=== PATIENT | female | born 1985 | race Caucasian/White ===

== ENCOUNTER 2021-01-22 00:40 | Emergency (ER) | payer SELFPAY ==
[~2021-01-22] VITALS: Ht 160 cm; Wt 72.2 kg
--- NOTE | 2021-01-22 00:46 | PHYS DOC ---
General Adult EDM: Chief Complaint: BREAST PROBLEM HPI: HPI: ". .. 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 the last couple weeks... "..".. It same breast years ago .. I got a lump.. and infection.. I had xrays. or mammogram twice at [facility] referred to either [facility] or [facility] but I do not have any paperwork with me.... But I ended up in hospital month on 3 different antibiotics and they did surgery.... Patient is a 35 year old female who presents with above hx and complaints right breast tenderness at area of previous biopsy and lumpectomy. Patient has no axillary tenderness. No striations. No nipple discharge. Does have some inflammation right at skin of previous suture line on right breast. Patient gives history of somewhat resistant infection of this area previously. Patient does have a follow-up physician and has followed in the past at [facility] at [facility]. Patient symptoms have been present last 24 to 48 hours. Patient is very concerned. Patient denies any history of depression. No history of trauma. No history of travel. No history of significant ill contacts. Review of Systems: Review of Systems: Constitutional: Denies fever or chills Eyes: Denies change in visual acuity HENT: Denies nasal congestion or sore throat Respiratory: Denies cough or shortness of breath Cardiovascular: Denies chest pain or edema GI: Denies abdominal pain, nausea, vomiting, bloody stools or diarrhea : Denies dysuria Musculoskeletal: Denies back pain or joint pain Integument: Complains of inflammation at the suture line of previous biopsy right breast Neurologic: Denies headache, focal weakness or sensory changes Endocrine: Denies polyuria or polydipsia Lymphatic: Denies swollen glands Psychiatric: Denies depression or anxiety Family History: Family History: Noncontributory presentation Current Medications: Current Meds: See nursing for home meds Allergies: Allergies: Allergic to penicillins Physical Exam: PE: Constitutional: Well developed, well nourished, in acute motional distress, non- toxic appearance. [] HENT: Normocephalic, atraumatic, bilateral external ears normal, oropharynx moist, no oral exudates, nose normal. [] Eyes: PERRLA, EOMI, conjunctiva normal, no discharge. [] Neck: Normal range of motion, no tenderness, supple, no stridor. [] Cardiovascular:Heart rate regular rhythm, no murmur [] Lungs & Thorax: Bilateral breath sounds equal apex with scattered wheezes on auscultation [] Abdomen: Bowel sounds normal, soft, no tenderness, no masses, no pulsatile masses. [] Skin: Warm, dry, no erythema, inflamed area at suture line of right breast. Back: No tenderness, no CVA tenderness. [] Extremities: No tenderness, no cyanosis, no clubbing, ROM intact, no edema. [] Neurologic: Alert and oriented X 3, normal motor function, normal sensory function, no focal deficits noted. [] Psychologic: Affect very anxious, judgement normal, mood normal. [] EKG: EKG: [] Radiology/Procedures: Radiology/Procedures: [] Heart Score: C/O Chest Pain: N/A Risk Factors: Risk Factors: DM, Current or recent (<one month) smoker, HTN, HLP, family history of CAD, obesity. Risk Scores: Score 0 - 3: 2.5% MACE over next 6 weeks - Discharge Home Score 4 - 6: 20.3% MACE over next 6 weeks - Admit for Clinical Observation Score 7 - 10: 72.7% MACE over next 6 weeks - Early Invasive Strategies Course & Med Decision Making: Course & Med Decision Making Pertinent Labs and Imaging studies reviewed. (See chart for details) Patient history this must be followed up and new mammogram films compared to prior films on file at hospitals where she had previous surgery done. During arrival here would start on Bactrim DS twice a day. Massage area Polysporin 4 times a day. Take Tylenol and ibuprofen for discomfort. Impressed upon patient the need for prompt follow-up and comparison of old films with new films. Most likely this is cellulitis localized to the area however with history always have to have a high suspicion for carcinoma. Must follow-up. Return if any concerns. Impression 1. Right breast inflammation suspect cellulitis 2. History of right breast infection and mass with prior surgical resection-at site of current inflammation. [] Dragon Disclaimer: Dragon Disclaimer: This electronic medical record was generated, in whole or in part, using a voice recognition dictation system. Departure Departure: Scripts Sulfamethoxazole/Trimethoprim (BACTRIM DS TABLET) 1 Each Tablet 1 TAB PO BID for cellulitis for 10 Days, #20 TAB 0 Refills Prov: SELENE CORTES MD 01/22/21 Sebastian Disclaimer This chart was dictated in whole or in part using Voice Recognition software in a busy, high-work load, and often noisy Emergency Department environment. It may contain unintended and wholly unrecognized errors or omissions. SELENE CORTES MD Jan 22, 2021 00:46
[2021-01-22] MEDS ORDERED: MELA10CA PO (01:16)
[2021-01-22] MEDS ORDERED: MELA3TAB43 PO (01:16)
[2021-01-22] MEDS ORDERED: [UNRECOGNIZED DRUG - CODE] PO (01:17)
[2021-01-22] MEDS ORDERED: SULF1TAB24 PO (01:21)
[2021-01-22 01:30] VITALS: BP 138/76
[2021-01-22] MEDS ORDERED: SMZ/TMP 800/160MG TABLET. PO ONE (02:00)
[2021-01-22] MEDS ORDERED: KETOROLAC 60 MG/2 ML VIAL. IM ONE (02:00)
== END 2021-01-22 01:34 | disposition home or self-care (01) ==
LOC: ER 00:40
DX: N61.0 Mastitis without abscess (principal); Z88.0 Allergy status to penicillin
CPT/HCPCS: 96372; 99283; J1885